=== PATIENT | female | born 1960 | race Caucasian/White ===

== ENCOUNTER 2025-01-03 00:02 | Emergency (ER) | payer BC ==
[2025-01-03 00:33] LABS: #Basophils 0.04 10x3/uL (0.0-0.2); #Eosinophils 0.15 10x3/uL (0.0-0.5); #Monocytes 0.68 10x3/uL (0.0-1.1); #Neutrophils 8.04 10x3/uL (1.5-8.4); %Basophils 0.3 % (0.0-2.0); %Eosinophils 1.3 % (0.0-6.0); %Lymphocytes 23.4 % (18.0-47.0); %Monocytes 5.8 % (0.0-10.0); %Neutrophils 68.8 % (40.0-75.0); Hematocrit 37.7 % (34.9-44.5); Mean Corpuscular HGB CONC 34.5 g/dL (32.0-36.0); Mean Corpuscular Hemoglobin 29.5 pg (27.0-33.0); Mean Corpuscular Volume 85.5 fL (81.6-98.3); Platelet Count 257 10x3/uL (150-450); RBC Distribution Width 12.7 % (11.5-14.5); Red Blood Cell (RBC) Count 4.41 10x6/uL (3.90-5.03); White Blood Cell (WBC) Count 11.69 10x3/uL (3.5-10.5)
[2025-01-03] MEDS ORDERED: Ipratropium/Albuterol 3 ML NEB ONE (00:44)
[2025-01-03 00:54] LABS: ALT (SGPT) 23 U/L (Less than 34); AST (SGOT) 23 U/L (11-34); Albumin 3.7 g/dL (3.1-4.5); Alkaline Phosphatase 113 U/L (40-110); Anion Gap 17 mmol/L (10-20); BUN (Urea Nitrogen) 25 mg/dL (9.8-20.1); Bilirubin, Total 0.5 mg/dL (0.3-1.2); Calc. Creatinine Clearance 0 mL/min (70-130); Carbon Dioxide 19 mmol/L (23-31); Chloride 108 mmol/L (98-107); Estimated GFR 67; Globulin 3.2 g/dL (2.4-3.5); Glucose 96 mg/dL (80-115); Potassium 3.4 mmol/L (3.5-5.1); Protein, Total 6.9 g/dL (5.8-8.1); Sodium 141 mmol/L (136-145)
[2025-01-03 01:02] LABS: Troponin I Less than 0.010 ng/mL (< 0.028)
[2025-01-03 01:03] LABS: Actual Bicarbonate (HCO3v) 19.8 mEq/L (22-28); Analyzer IN Cardio CS ER; Base Excess -3.8 mEq/L (-2 - +2); Calcium, Ionized (venous) 1.15 mmol/L (1.16-1.32); Chloride (VBG) 104 mmol/L (98-106); Hematocrit-VBG 45 % (36.0-47.0); Hemoglobin (Hb) 15.2 g/dL (11.7-16.0); Potassium (VBG) 3.34 mmol/L (3.70-5.30); Puncture Site Other Site; RapidComm Collect By Lab; Sodium 139 mmol/L (133-146); pH (venous) 7.407 (7.32-7.43)
[2025-01-03] MEDS ORDERED: Acetaminophen/Codeine 30-300mg Tablet ONE (01:16)
[2025-01-03] MEDS ORDERED: Famotidine/PF 20 mg/2ml Vial ONE (01:28)
[2025-01-03] MEDS ORDERED: diphenhydrAMINE 50 MG/ML VIAL ONE (01:28)
== END 2025-01-03 04:20 | disposition home or self-care (01) ==
LOC: CSHERS 00:02
DX: J90 Pleural effusion, not elsewhere classified (principal); R91.1 Solitary pulmonary nodule; C77.1 Secondary and unspecified malignant neoplasm of intrathoracic lymph nodes; C41.2 Malignant neoplasm of vertebral column; C78.7 Secondary malignant neoplasm of liver and intrahepatic bile duct; J44.9 Chronic obstructive pulmonary disease, unspecified; I10 Essential (primary) hypertension; I25.2 Old myocardial infarction; Z87.891 Personal history of nicotine dependence; Z79.899 Other long term (current) drug therapy
CPT/HCPCS: 71045; 71275; 80053; 82805; 83605; 83880; 84443; 84484; 85025; 85379; 93005; 94760; 96374; 96375; J1200; J3490; J7620